=== PATIENT | male | born 1985 | race Caucasian/White ===

== ENCOUNTER 2018-09-20 10:34 | Emergency (ER) | payer SELFPAY ==
[~2018-09-20] VITALS: Ht 190.5 cm; Wt 95.5 kg
[2018-09-20 10:59] VITALS: BP 125/76
== END 2018-09-20 11:21 | disposition left against medical advice (07) ==
LOC: EMS 10:38
DX: Z02.89 Encounter for other administrative examinations (principal); Z53.21 Procedure and treatment not carried out due to patient leaving prior to being seen by health care provider

== ENCOUNTER 2018-10-02 10:12 | Emergency (ER) | payer OTHER ==
[~2018-10-02] VITALS: Ht 190.5 cm; Wt 100.0 kg
[~2018-10-02 10:12] MED LIST: DSS100 PO; FOLI1 PO; LIB25 PO; MULT-1203 PO; PERCT10 PO; THIA100T67 PO
[2018-10-02] MEDS ORDERED: IBUPROFEN 600 MG TABLET PO ONE (12:30)
[2018-10-02] MEDS ORDERED: OxyCODONE HCL/ACETAMINOPHEN 10-325 MG TABLET PO ONE (12:30)
[2018-10-02 14:57] VITALS: BP 142/70
== END 2018-10-02 15:00 | disposition home or self-care (01) ==
LOC: EMS 10:13
DX: S40.012A Contusion of left shoulder, initial encounter (principal); F10.20 Alcohol dependence, uncomplicated; Z79.899 Other long term (current) drug therapy; W06.XXXA Fall from bed, initial encounter; Y93.89 Activity, other specified; Y92.89 Other specified places as the place of occurrence of the external cause; Y99.8 Other external cause status